=== PATIENT | female | born 1940 | race Caucasian/White ===

== ENCOUNTER 2020-02-15 09:21 | Outpatient (REF) | payer MEDICARE, SELFPAY | END 2020-02-15 09:22 | disposition home or self-care (01) | LOC: HO.MDS 09:21 | PROVIDERS: PCP Internal Medicine; Visit Provider Internal Medicine | DX: K51.90 Ulcerative colitis, unspecified, without complications (principal) | CPT/HCPCS: 96413; 96415; J1745 ==

== ENCOUNTER 2020-04-10 10:12 | Outpatient (REF) | payer MEDICARE, SELFPAY ==
[2020-04-13 17:18] LABS: TS Negative Control Passed; TS Panel A 0; TS Panel B 0; TS Positive Control Passed; TSpotTB Negative (SeeBelow)
== END 2020-04-10 10:13 | disposition home or self-care (01) ==
LOC: HO.MDS 10:12
PROVIDERS: PCP Internal Medicine; Visit Provider Internal Medicine
DX: K51.90 Ulcerative colitis, unspecified, without complications (principal)
CPT/HCPCS: 86481; 96413; 96415; J1745

== ENCOUNTER 2020-06-05 09:03 | Outpatient (REF) | payer MEDICARE, SELFPAY | END 2020-06-05 09:04 | disposition home or self-care (01) | LOC: HO.MDS 09:03 | PROVIDERS: PCP Internal Medicine; Visit Provider Internal Medicine | DX: K51.90 Ulcerative colitis, unspecified, without complications (principal) | CPT/HCPCS: 96365; 96366; J1745 ==

== ENCOUNTER 2020-07-31 09:05 | Outpatient (REF) | payer MEDICARE, SELFPAY | END 2020-07-31 09:06 | disposition home or self-care (01) | LOC: HO.MDS 09:05 | PROVIDERS: PCP Internal Medicine; Visit Provider Internal Medicine | DX: K51.90 Ulcerative colitis, unspecified, without complications (principal) | CPT/HCPCS: 96413; 96415; J1745 ==

== ENCOUNTER 2020-09-25 09:06 | Outpatient (REF) | payer MEDICARE, SELFPAY | END 2020-09-25 09:07 | disposition home or self-care (01) | LOC: HO.MDS 09:06 | PROVIDERS: PCP Internal Medicine; Visit Provider Internal Medicine | DX: K51.90 Ulcerative colitis, unspecified, without complications (principal) | CPT/HCPCS: 96413; 96415; J1745 ==

== ENCOUNTER 2020-11-20 09:11 | Outpatient (REF) | payer MEDICARE, SELFPAY | END 2020-11-20 09:12 | disposition home or self-care (01) | LOC: HO.MDS 09:11 | PROVIDERS: PCP Internal Medicine; Visit Provider Internal Medicine | DX: K51.90 Ulcerative colitis, unspecified, without complications (principal) | CPT/HCPCS: 96413; 96415; J1745 ==

== ENCOUNTER 2021-01-15 09:36 | Outpatient (REF) | payer MEDICARE, SELFPAY | END 2021-01-15 09:37 | disposition home or self-care (01) | LOC: HO.MDS 09:36 | PROVIDERS: PCP Internal Medicine; Visit Provider Internal Medicine | DX: K51.90 Ulcerative colitis, unspecified, without complications (principal) | CPT/HCPCS: 96413; 96415; J1745 ==

== ENCOUNTER 2021-03-12 09:42 | Outpatient (REF) | payer MEDICARE, SELFPAY ==
[2021-03-15 12:46] LABS: TS Negative Control Passed; TS Panel A 0; TS Panel B 0; TS Positive Control Passed; TSpotTB Negative (Negative)
== END 2021-03-12 09:43 | disposition home or self-care (01) ==
LOC: HO.MDS 09:42
PROVIDERS: PCP Internal Medicine; Visit Provider Internal Medicine
DX: K51.90 Ulcerative colitis, unspecified, without complications (principal)
CPT/HCPCS: 36415; 86481; 96413; 96415; J1745

== ENCOUNTER 2021-04-01 08:26 | Outpatient (REF) | payer MEDICARE, SELFPAY | END 2021-04-01 08:27 | disposition home or self-care (01) | LOC: HO.HMGCLDS 08:26 | PROVIDERS: PCP Internal Medicine; Visit Provider Internal Medicine | DX: Z20.822 Contact with and (suspected) exposure to COVID-19 (principal) | CPT/HCPCS: C9803; U0003; U0005 ==

== ENCOUNTER 2021-05-07 09:28 | Outpatient (REF) | payer MEDICARE, SELFPAY | END 2021-05-07 09:29 | disposition home or self-care (01) | LOC: HO.MDS 09:28 | PROVIDERS: PCP Internal Medicine; Visit Provider Internal Medicine | DX: K51.90 Ulcerative colitis, unspecified, without complications (principal) | CPT/HCPCS: 96413; 96415; J1745 ==

== ENCOUNTER 2021-07-02 09:18 | Outpatient (REF) | payer MEDICARE, SELFPAY | END 2021-07-02 09:19 | disposition home or self-care (01) | LOC: HO.MDS 09:18 | PROVIDERS: PCP Internal Medicine; Visit Provider Internal Medicine | DX: K51.90 Ulcerative colitis, unspecified, without complications (principal) | CPT/HCPCS: 96413; 96415; J1745 ==

== ENCOUNTER 2021-09-04 09:15 | Outpatient (REF) | payer MEDICARE, SELFPAY | END 2021-09-04 09:16 | disposition home or self-care (01) | LOC: HO.MDS 09:15 | PROVIDERS: Visit Provider Internal Medicine | DX: K51.90 Ulcerative colitis, unspecified, without complications (principal) | CPT/HCPCS: 96413; 96415; J1745 ==

== ENCOUNTER 2021-11-05 09:34 | Outpatient (REF) | payer MEDICARE, SELFPAY | END 2021-11-05 09:35 | disposition home or self-care (01) | LOC: HO.MDS 09:34 | PROVIDERS: Visit Provider Internal Medicine | DX: K51.90 Ulcerative colitis, unspecified, without complications (principal) | CPT/HCPCS: 96413; 96415; J1745 ==

== ENCOUNTER 2021-12-31 09:41 | Outpatient (REF) | payer MEDICARE, SELFPAY | END 2021-12-31 09:42 | disposition home or self-care (01) | LOC: HO.MDS 09:41 | PROVIDERS: PCP Internal Medicine; Visit Provider Internal Medicine | DX: K51.90 Ulcerative colitis, unspecified, without complications (principal) | CPT/HCPCS: 96413; 96415; J1745 ==

== ENCOUNTER 2022-02-25 09:29 | Outpatient (REF) | payer MEDICARE, SELFPAY ==
[2022-02-28 00:36] LABS: TS Negative Control Passed; TS Panel A 0; TS Panel B 0; TS Positive Control Passed; TSpotTB Negative (Negative)
== END 2022-02-25 09:30 | disposition home or self-care (01) ==
LOC: HO.MDS 09:29
PROVIDERS: Visit Provider Internal Medicine
DX: K51.00 Ulcerative (chronic) pancolitis without complications (principal)
CPT/HCPCS: 36415; 86481; 96413; 96415; J1745

== ENCOUNTER 2022-04-22 09:40 | Outpatient (REF) | payer MEDICARE, SELFPAY | END 2022-04-22 09:41 | disposition home or self-care (01) | LOC: HO.MDS 09:40 | PROVIDERS: Visit Provider Internal Medicine | DX: K51.90 Ulcerative colitis, unspecified, without complications (principal) | CPT/HCPCS: 96413; 96415; J1745 ==

== ENCOUNTER 2022-06-17 09:28 | Outpatient (REF) | payer MEDICARE, SELFPAY | END 2022-06-17 09:29 | disposition home or self-care (01) | LOC: HO.MDS 09:28 | PROVIDERS: Visit Provider Internal Medicine | DX: K51.90 Ulcerative colitis, unspecified, without complications (principal) | CPT/HCPCS: 96413; 96415; J1745 ==

== ENCOUNTER 2022-08-12 09:42 | Outpatient (REF) | payer MEDICARE, SELFPAY | END 2022-08-12 09:43 | disposition home or self-care (01) | LOC: HO.MDS 09:42 | PROVIDERS: Visit Provider Internal Medicine | DX: K51.90 Ulcerative colitis, unspecified, without complications (principal) | CPT/HCPCS: 96413; 96415; J1745 ==

== ENCOUNTER 2022-10-07 09:12 | Outpatient (REF) | payer MEDICARE, SELFPAY | END 2022-10-07 09:13 | disposition home or self-care (01) | LOC: HO.MDS 09:12 | PROVIDERS: Visit Provider Internal Medicine | DX: K51.90 Ulcerative colitis, unspecified, without complications (principal) | CPT/HCPCS: 96413; 96415; J1745 ==

== ENCOUNTER 2022-12-10 09:03 | Outpatient (REF) | payer MEDICARE, SELFPAY | END 2022-12-10 09:04 | disposition home or self-care (01) | LOC: HO.MDS 09:03 | PROVIDERS: Visit Provider Internal Medicine | DX: K51.90 Ulcerative colitis, unspecified, without complications (principal) | CPT/HCPCS: 96365; 96366; J1745 ==

== ENCOUNTER 2023-02-04 09:03 | Outpatient (REF) | payer MEDICARE, SELFPAY ==
[2023-02-06 22:28] LABS: TS Negative Control Passed; TS Panel A 0; TS Panel B 3; TS Positive Control Passed; TSpotTB Negative (Negative)
== END 2023-02-04 09:04 | disposition home or self-care (01) ==
LOC: HO.MDS 09:03
PROVIDERS: Visit Provider Internal Medicine
DX: K51.90 Ulcerative colitis, unspecified, without complications (principal); Z11.1 Encounter for screening for respiratory tuberculosis
CPT/HCPCS: 36415; 86481; 96365; 96366; J1745

== ENCOUNTER 2023-04-01 09:29 | Outpatient (REF) | payer MEDICARE, SELFPAY | END 2023-04-01 09:30 | disposition home or self-care (01) | LOC: HO.MDS 09:29 | PROVIDERS: Visit Provider Internal Medicine | DX: K51.90 Ulcerative colitis, unspecified, without complications (principal) | CPT/HCPCS: 96365; J1745 ==

== ENCOUNTER 2023-05-27 09:36 | Outpatient (REF) | payer MEDICARE, SELFPAY | END 2023-05-27 09:37 | disposition home or self-care (01) | LOC: HO.MDS 09:36 | PROVIDERS: Visit Provider Internal Medicine | DX: K51.90 Ulcerative colitis, unspecified, without complications (principal) | CPT/HCPCS: 96365; 96366; J1745 ==